=== PATIENT | female | born 1940 | race Caucasian/White ===

== ENCOUNTER 2016-09-18 23:53 | Emergency (ER) | payer OTHER ==
[~2016-09-18] VITALS: Ht 160 cm; Wt 75.0 kg
[~2016-09-18 23:53] MED LIST: AMOX TR-K CLV1 EAC4 PO; ATARAX,VISTARIL25 MG PO; ATIVAN1 MG PO; ATORVASTATIN CA10 MG PO; Ascorbic Acid,Ester- PO; CALCIUM 500 +1 EAC2 PO; CELEXA10 MG PO; CITALOPRAM HBR20 MG PO; CYANOCOBAL1000 MCG/2 IM; Colace PO; Desyrel PO; Ditropan PO; Dulcolax PO; FERROUS SULFAT325 MG PO; Folvite PO; JANUMET 50/11 TABLET PO; JANUVIA100 MG PO; Januvia PO; LIDODERM 5% P1 PATCH TD; LORAZEPAM0.5 MG PO; LORAZEPAM1 MG PO; LOSARTAN POTAS100 MG PO; METFORMIN HCL500 MG PO; METRONIDAZOLE500 MG PO; OMEPRAZOLE20 MG PO; OMEPRAZOLE40 M1 PO; OXYBUTYNIN CHLOR5 MG PO; Oscal 500 w/Vitamin PO; PERCOCET 5/31 TABLET PO; PRILOSEC40 MG PO; PROAIR HFA8.5 GM IH; Pravachol PO; Proventil,Ventolin H IH; TRAMADOL HCL50 MG PO; TRAZODONE HCL50 MG PO; TUMS500 MG PO; TYLENOL REGULA325 MG PO; Tears Naturale II,Ar BOTH EYES; Theragran PO; ULTRAM50 MG PO; WELLBUTRIN75 MG PO; ZOCOR20 MG PO; Zocor PO; celeXA PO; oxyCODONE PO
[2016-09-19 04:06] VITALS: BP 117/65
== END 2016-09-19 04:14 ==
LOC: EME → EDBD 23:53 → EME 23:53
PROC: 0HQ0XZZ Repair Scalp Skin, External Approach (ICD-10-PCS; principal; 2016-09-18)
DX: S09.90XA Unspecified injury of head, initial encounter (principal); S01.01XA Laceration without foreign body of scalp, initial encounter; W06.XXXA Fall from bed, initial encounter; Y92.122 Bedroom in nursing home as the place of occurrence of the external cause; F03.90 Unspecified dementia, unspecified severity, without behavioral disturbance, psychotic disturbance, mood disturbance, and anxiety; J45.909 Unspecified asthma, uncomplicated; E11.9 Type 2 diabetes mellitus without complications; I10 Essential (primary) hypertension; K21.9 Gastro-esophageal reflux disease without esophagitis
CPT/HCPCS: 70450; 99281; 99285

== ENCOUNTER 2016-09-23 03:54 | Emergency (ER) | payer OTHER ==
[~2016-09-23] VITALS: Ht 162.6 cm; Wt 69.0 kg
[2016-09-23 06:22] VITALS: BP 120/98
== END 2016-09-23 06:56 | disposition home or self-care (01) ==
LOC: EME 03:54
PROC: 0HQ1XZZ Repair Face Skin, External Approach (ICD-10-PCS; principal; 2016-09-23)
DX: S01.412A Laceration without foreign body of left cheek and temporomandibular area, initial encounter (principal); W06.XXXA Fall from bed, initial encounter; Y92.193 Bedroom in other specified residential institution as the place of occurrence of the external cause; F03.90 Unspecified dementia, unspecified severity, without behavioral disturbance, psychotic disturbance, mood disturbance, and anxiety
CPT/HCPCS: 70450; 70486; 99281; 99285